=== PATIENT | female | born 1945 | race Caucasian/White ===

== ENCOUNTER 2017-09-07 09:09 | Emergency (ER) | payer MEDICARE, BC ==
[2017-09-07 11:34] VITALS: BP 165/80
--- NOTE | 2017-09-22 17:55 | UC ---
General HPI - HPI Summary HPI Summary: pt presents requesting evaluation for strep with strep testing after sharing ice cream with a grand son who was later dx with strep throat 1 days later. no sx. - History of Current Complaint Chief Complaint: UCGeneralIllness Stated Complaint: SORE THROAT Time Seen by Provider: 09/07/17 11:47 Hx Obtained From: Patient Hx Last Menstrual Period: n/a Onset/Duration: Other - no sx Current Severity: None Pain Intensity: 0 Associated Signs & Symptoms: Negative: Cough, Fever, Headache, Vomiting - Allergy/Home Medications Allergies/Adverse Reactions: Allergies Allergy/AdvReac Type Severity Reaction Status Date / Time No Known Environmental Allergy Intermediate breathing Verified 01/27/16 15:38 Allergies difficulties PMH/Surg Hx/FS Hx/Imm Hx Cardiovascular History: Cardiac Disease, Hypertension Respiratory History: Asthma Cancer History: Breast Cancer Other History Of: Negative For: HIV, Hepatitis B, Hepatitis C, Anticoagulant Therapy - Surgical History Surgical History: Yes Surgery Procedure, Year, and Place: T&A. double mastectomy- 2006 - Family History Known Family History: Negative: Cardiac Disease, Hypertension, Diabetes - Social History Occupation: Retired Alcohol Use: None Substance Use Type: None Smoking Status (MU): Never Smoked Tobacco Review of Systems Constitutional: Negative Skin: Negative Eyes: Negative ENT: Negative Respiratory: Negative Cardiovascular: Negative Gastrointestinal: Negative Genitourinary: Negative Motor: Negative Neurovascular: Negative Musculoskeletal: Negative Neurological: Negative Psychological: Negative All Other Systems Reviewed And Are Negative: Yes Physical Exam Triage Information Reviewed: Yes Appearance: Well-Appearing, No Pain Distress, Well-Nourished Vital Signs: Initial Vital Signs Temp 97.8 F 09/07/17 11:26 Pulse 63 09/07/17 11:26 Resp 16 09/07/17 11:26 BP 165/80 09/07/17 11:26 Pulse Ox 100 09/07/17 11:26 Vital Signs Reviewed: Yes Eyes: Positive: Conjunctiva Clear. Negative: Discharge ENT: Positive: Hearing grossly normal, Pharynx normal, TMs normal. Negative: Nasal congestion, Nasal drainage, Tonsillar swelling, Tonsillar exudate, Trismus , Muffled voice, Hoarse voice Neck: Positive: Supple, Nontender, No Lymphadenopathy Respiratory: Positive: Lungs clear, Normal breath sounds, No respiratory distress, No accessory muscle use Cardiovascular: Positive: RRR, No Murmur Musculoskeletal Exam: Normal Neurological: Positive: Alert, Muscle Tone Normal Psychological: Positive: Age Appropriate Behavior Skin Exam: Normal Course/Dx - Differential Dx - Multi-Symptom Provider Diagnoses: healthy geriatric pt Discharge - Discharge Plan Condition: Stable Disposition: HOME Referrals: Miesha Ocampo MD [Primary Care Provider] - If Needed Additional Instructions: YOUR RAPID STREP TEST WAS NEGATIVE. WE RECOMMEND THAT YOU EAT HEALTHY, GET PLENTY OF REST AND DO OTHER THINGS TO SUPPORT YOUR IMMUNE SYSTEM SO YOU DONT GET SICK.
== END 2017-09-07 12:14 | disposition home or self-care (01) ==
LOC: UCCORT 09:09
DX: Z20.818 Contact with and (suspected) exposure to other bacterial communicable diseases (principal)
CPT/HCPCS: 87651; 99211; G0463